=== PATIENT | female | born 1965 | race Caucasian/White ===

== ENCOUNTER → 2016-05-27 | Outpatient (CLI) | payer BC ==
[2016-05-27 13:22] LABS: Hepatitis C Virus IgG Index 0.01
[2016-05-27 13:25] LABS: Hepatitis C Virus IgG Ab Negative (Negative)
== END | disposition home or self-care (01) ==
LOC: LABWHC1 11:33
PROVIDERS: ATTEND Family Medicine
DX: Z00.00 Encounter for general adult medical examination without abnormal findings (principal)
CPT/HCPCS: 36415; 86803

== ENCOUNTER → 2017-05-02 | Outpatient (CLI) | payer BC ==
--- NOTE | 2017-05-02 09:27 | WWHP ---
[facility] - HISTORY AND PHYSICAL DATE OF SERVICE: 05/02/2017 CHIEF COMPLAINT: The patient is here for her routine gynecologic exam and mammogram. HPI: This is a 52-year-old G2, P2 with an LMP of 02/2015. The patient has occasional hot flashes, but they are not severe. She is without gynecologic complaints and denies any postmenopausal bleeding. PAST MEDICAL HISTORY: Seasonal allergies and asthma. MEDICATIONS: 1. Claritin-D daily p.r.n. 2. Flonase daily. 3. Omeprazole 1 daily. 4. Qvar inhaler p.r.n. 5. Multivitamin daily. ALLERGIES: PENICILLIN and VICODIN, both of which caused hives. 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 SOCIAL HISTORY: She quit smoking in her 20s. She has 0 to 2 alcohol containing drinks per week and denies drug use. She has been since 2010 and this is her second marriage. 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 REVIEW OF SYSTEMS: She has gained about 3 pounds over the last year. RESPIRATORY: She she has some seasonal allergy symptoms. She denies cardiac or GI problems. PHYSICAL EXAM: Blood pressure 130/83, height 5 feet 2 inches, weight 153 pounds, BMI 28, temperature 98.0, pulse 79. This is a well-developed, well-nourished white female who is alert and oriented x3, in no acute distress. HEENT is within normal limits. NECK: Supple without mass or thyromegaly. CHEST AND LUNGS: Clear to auscultation. HEART: Regular rate and rhythm. Breasts are without mass or discharge. Axillary exam is negative for adenopathy. BACK: Negative for CVA tenderness. ABDOMEN: Soft, nontender, without palpable masses. PELVIC EXAM: Normal external genitalia with minimal atrophy. Cervix and vagina appears normal with minimal atrophy. There is no evidence of prolapse. The uterus is mid position, nongravid size and nontender. There are no palpable adnexal masses or tenderness. Rectovaginal exam is negative for mass or tenderness and is negative for occult blood. EXTREMITIES: Nontender. IMPRESSION: A 52-year-old menopausal female with normal gynecologic exam. PLAN: 1. Pap smear was deferred since she had a normal one last year. 2. Self breast examination was discussed. 3. Mammogram will be done today. 4. Osteoporosis prevention was discussed. 5. She will return in one year. MMODL / IJN: [id number] /
--- NOTE | 2017-05-04 11:35 | MM ---
Reason for exam: screening (asymptomatic). Last mammogram was performed 1 year and 1 month ago. History: Patient is postmenopausal. Took estrogen for 5 years beginning at age 43. Physical Findings: A clinical breast exam by your physician is recommended on an annual basis and results should be correlated with mammographic findings. MG 3D Screening Mammo W/Cad Bilateral CC and MLO view(s) were taken. Prior study comparison: March 29, 2016, bilateral MG 3d screening mammo w/cad. January 16, 2015, bilateral MG screening mammo w CAD. The breast tissue is heterogeneously dense. This may lower the sensitivity of mammography. There is chronic nodularity in the right breast. No significant changes when compared with prior studies. ASSESSMENT: Negative, BI-RAD 1 RECOMMENDATION: Routine screening mammogram of both breasts in 1 year.
== END | disposition home or self-care (01) ==
LOC: WWCWWP 08:00
PROVIDERS: ATTEND Obstetrics & Gynecology
DX: Z12.31 Encounter for screening mammogram for malignant neoplasm of breast (principal)
CPT/HCPCS: 77063; G0202

== ENCOUNTER → 2017-06-09 | Outpatient (CLI) | payer BC ==
[2017-06-09 08:31] LABS: Basophils % (A) 0 %; Eosinophils # (A) 0.2 k/uL (0-0.7); Eosinophils % (A) 3 %; HCT 40.6 % (34.0-46.0); HGB 13.3 gm/dL (11.4-16.0); Lymphocytes # (A) 1.8 k/uL (1.0-4.8); Lymphocytes % (A) 22 %; MCH 30.2 pg (25.0-35.0); MCHC 32.7 g/dL (31.0-37.0); MCV 92.3 fL (80.0-100.0); Mean Platelet Volume 6.7; Monocytes # (A) 0.5 k/uL (0-1.0); Monocytes % (A) 6 %; Neutrophils # (A) 5.3 k/uL (1.3-7.7); Neutrophils % (A) 67 %; Platelet Count 324 k/uL (150-450); RDW 13.5 % (11.5-15.5)
[2017-06-09 08:49] LABS: ALT 29 U/L (9-52); AST 23 U/L (14-36); Alkaline Phosphatase 137 U/L (38-126); Anion Gap 8 mmol/L; Blood Urea Nitrogen 18 mg/dL (7-17); Calcium 9.3 mg/dL (8.4-10.2); Carbon Dioxide 27 mmol/L (22-30); Chloride 110 mmol/L (98-107); Cholesterol 145 mg/dL (<200); Glucose 94 mg/dL (74-99); HDL Cholesterol 65 mg/dL (40-60); LDL Cholesterol,Calculated 64 mg/dL (0-99); Potassium 4.5 mmol/L (3.5-5.1); Sodium 145 mmol/L (137-145); Total Bilirubin 0.4 mg/dL (0.2-1.3); Total Protein 6.8 g/dL (6.3-8.2); Triglycerides 82 mg/dL (<150)
== END | disposition home or self-care (01) ==
LOC: LABWHC1 08:13
PROVIDERS: ATTEND Family Medicine
DX: Z00.00 Encounter for general adult medical examination without abnormal findings (principal); G47.01 Insomnia due to medical condition; J01.01 Acute recurrent maxillary sinusitis; L63.9 Alopecia areata, unspecified
CPT/HCPCS: 36415; 80053; 80061; 84443; 85025

== ENCOUNTER → 2018-05-28 | Outpatient (CLI) | payer BC ==
[2018-05-28 14:18] VITALS: BP 113/83; PULSE 132; TEMP 98.5; BMI 27.4
[2018-05-28 14:32] VITALS: RESP 18
--- NOTE | 2018-05-28 15:01 | P.HPOB ---
History of Present Illness H&P Date: 05/28/18 Chief Complaint: The patient is here for her routine gynecologic exam and mammogram. This is a 53-year-old G2 PII within LMP of 2014. The patient is without gynecologic complaints and denies any postmenopausal bleeding. Review of Systems The patient has lost 3 pounds over the last year. She denies respiratory, cardiac, or G.I. problems. Past Medical History Past Medical History: Asthma, GERD/Reflux Additional Past Medical History / Comment(s): Seasonal allergies. 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 History of Any Multi-Drug Resistant Organisms: None Reported Past Surgical History: Section, Cholecystectomy, Orthopedic Surgery Additional Past Surgical History / Comment(s): left hand. Excision of labial tissue-benign 2008. Colonoscopy 2015. Past Psychological History: No Psychological Hx Reported Smoking Status: Former smoker (Briefly smoked in her 20s.) Past Alcohol Use History: Occasional (0 to 2 per week) Past Drug Use History: None Reported Additional History: She's been since 2010 and this is her 2nd marriage. 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 - Past Family History Mother Family Medical History: No Reported History Additional Family Medical History / Comment(s): Great-grandmother had breast cancer and grandfather had Alzheimer's disease. Medications and Allergies Home Medications Medication Instructions Recorded Confirmed Type Cetirizine HCl [Zyrtec] 5 mg PO DAILY 05/28/18 05/28/18 History Lifitegrast [Xiidra] 1 dropper BOTH EYES BID 05/28/18 05/28/18 History Multivit with Calcium,Iron,Min 1 each PO DAILY 05/28/18 05/28/18 History [One Daily Women's] Omeprazole [PriLOSEC] 20 mg PO AC-BRKFST 05/28/18 05/28/18 History Allergies Allergy/AdvReac Type Severity Reaction Status Date / Time acetaminophen [From Vicodin] AdvReac Severe hives Unverified 05/28/18 14:06 hydrocodone [From Vicodin] AdvReac Severe hives Unverified 05/28/18 14:06 Penicillins AdvReac Severe hives Unverified 05/28/18 14:06 Exam Vital Signs Temp Pulse Resp BP Pulse Ox 05/28/18 14:11 98.5 F 132 H 18 113/83 95 Height 5'2", weight 150 pounds, BMI 28. Repeat pulse 100 bpm. This is a well-developed well-nourished white female who is alert and oriented times 3 in no acute distress. HEENT: Within normal limits. NECK: Supple without mass or thyromegaly. CHEST AND LUNGS: Clear to auscultation. HEART: mild tachycardia. Regular rhythm. BREASTS: Are without mass or discharge. AXILLARY EXAM: Negative for adenopathy. BACK: Negative for CVA tenderness. ABDOMEN: Soft, nontender, without palpable masses. PELVIC EXAM: Normal external genitalia. Cervix and vagina appear normal with minimal atrophy. There is no unusual discharge. There is no evidence of prolapse. The uterus is midposition, nongravid size and nontender. There are no palpable adnexal masses or tenderness. RECTAL EXAM: rectovaginal exam is negative for mass or tenderness and is negative for occult blood. EXTREMITIES: Nontender. IMPRESSION: 1. 53 year old menopausal female with normal gynecologic exam. 2. Mild tachycardia. Asymptomatic. PLAN: 1. Pap smear was performed. 2. Self breast awareness was discussed with the patient. 3. Screening mammogram will be done today. 4. Osteoporosis prevention was discussed. I have stressed the importance of adequate calcium, vitamin D and regular exercise. Recommended amounts of calcium and vitamin D were also discussed. 5. We have discussed her tachycardia. She will check her own pulse on a regular basis. She will follow-up with Dr. Correia for pulse elevations or problems. She states she does have an appointment with him in 2 weeks. She will let him know that she did have an elevated pulse today. 6. She will return in one year.
--- NOTE | 2018-06-01 09:18 | MM ---
Reason for exam: screening (asymptomatic). Last mammogram was performed 1 year and 1 month ago. History: Patient is postmenopausal. Took estrogen for 5 years beginning at age 43. MG 3D Screening Mammo W/Cad Bilateral CC and MLO view(s) were taken. Prior study comparison: May 02, 2017, bilateral MG 3d screening mammo w/cad. March 29, 2016, bilateral MG 3d screening mammo w/cad. The breast tissue is heterogeneously dense. This may lower the sensitivity of mammography. No discrete abnormality. No significant changes when compared with prior studies. ASSESSMENT: Negative, BI-RAD 1 RECOMMENDATION: Routine screening mammogram of both breasts in 1 year.
== END ==
LOC: WWCWWP 13:51
PROVIDERS: ATTEND Obstetrics & Gynecology
DX: Z12.31 Encounter for screening mammogram for malignant neoplasm of breast (principal)
CPT/HCPCS: 77063; 77067

== ENCOUNTER → 2018-06-14 | Outpatient (CLI) | payer BC ==
[2018-06-14 09:02] LABS: Basophils # (A) 0.1 k/uL (0-0.2); Basophils % (A) 1 %; Eosinophils # (A) 0.1 k/uL (0-0.7); Eosinophils % (A) 2 %; HCT 39.9 % (34.0-46.0); HGB 12.9 gm/dL (11.4-16.0); Lymphocytes % (A) 29 %; MCH 29.6 pg (25.0-35.0); MCHC 32.3 g/dL (31.0-37.0); MCV 91.6 fL (80.0-100.0); Mean Platelet Volume 6.9; Monocytes # (A) 0.4 k/uL (0-1.0); Monocytes % (A) 6 %; Neutrophils % (A) 60 %; Platelet Count 298 k/uL (150-450); RBC 4.35 m/uL (3.80-5.40); RDW 13.9 % (11.5-15.5); WBC 6.7 k/uL (3.8-10.6)
[2018-06-14 16:52] LABS: Albumin 4.3 g/dL (3.80-4.90); Albumin/Globulin Ratio 2.05 (1.60-3.17); Anion Gap 10.1 mmol/L (4.00-12.00); Calcium 9.5 mg/dL (8.7-10.3); Carbon Dioxide 24.9 mmol/L (21.6-31.8); Globulin 2.1 g/dL (1.6-3.3); LDL Cholesterol,Calculated 75.8 mg/dL (0.0-131.0); Potassium 4.5 mmol/L (3.5-5.5); Total Bilirubin 0.5 mg/dL (0.2-1.2); Total Protein 6.4 g/dL (6.2-8.2); VLDL Calculation 13.2 mg/dL (5.00-40.00)
== END | disposition home or self-care (01) ==
LOC: LABWHC1 07:37
PROVIDERS: ATTEND Family Medicine
DX: Z00.00 Encounter for general adult medical examination without abnormal findings (principal); Z13.828 Encounter for screening for other musculoskeletal disorder
CPT/HCPCS: 36415; 80053; 80061; 84439; 84443; 85025

== ENCOUNTER → 2019-10-21 | Outpatient (CLI) | payer BC ==
[2019-10-21 08:13] VITALS: BP 112/69; PULSE 67; RESP 18; TEMP 98.2
--- NOTE | 2019-10-21 08:43 | P.HPOB ---
History of Present Illness H&P Date: 10/21/19 Chief Complaint: The patient is here for her routine gynecologic exam and ma mmogram. This is a 54-year-old with an LMP of 2014. The patient is without gynecologic complaints and denies any postmenopausal bleeding. Review of Systems The patient has lost 28 pounds over the last year. She says she lost the weight through [employer] last summer. She denies respiratory, cardiac, or G.I. problems. Past Medical History Past Medical History: Asthma, GERD/Reflux Additional Past Medical History / Comment(s): Seasonal allergies. 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 History of Any Multi-Drug Resistant Organisms: None Reported Past Surgical History: Section, Cholecystectomy, Orthopedic Surgery Additional Past Surgical History / Comment(s): left hand Sx. Excision of labial tissue-benign 2008. Colonoscopy 2016(next after 10yr). Past Psychological History: Anxiety Smoking Status: Former smoker Past Alcohol Use History: Occasional Additional Past Alcohol Use History / Comment(s): Quit smoking in her 20s. Past Drug Use History: None Reported Additional Drug Use History / Comment(s): Has tried CBD Gummy Bears for anxiety. Additional History: She has been since 2010 and this is her second marriage. 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 - Past Family History Mother Family Medical History: No Reported History Additional Family Medical History / Comment(s): Great-grandmother had breast cancer and grandfather had Alzheimer's disease. Medications and Allergies Home Medications Medication Instructions Recorded Confirmed Type Lifitegrast [Xiidra] 1 dropper BOTH EYES BID 05/28/18 10/21/19 History Multivit with Calcium,Iron,Min 1 each PO DAILY 05/28/18 10/21/19 History [One Daily Women's] Calcium Carbonate/Vitamin D3 1 each PO DAILY 10/21/19 10/21/19 History [Calcium 600-D3 20Mcg(800 Unit)] Loratadine [Claritin] 5 mg PO DAILY 10/21/19 10/21/19 History Vitamin C/Biotin [Hair, Skin and 1 tab PO DAILY 10/21/19 10/21/19 History Nails] Allergies Allergy/AdvReac Type Severity Reaction Status Date / Time acetaminophen [From Vicodin] AdvReac Severe hives Unverified 10/21/19 08:04 hydrocodone [From Vicodin] AdvReac Severe hives Unverified 10/21/19 08:04 Penicillins AdvReac Severe hives Unverified 10/21/19 08:04 Exam Vital Signs Temp Pulse Resp BP Pulse Ox 10/21/19 08:07 98.2 F 67 18 112/69 99 Intake and Output 10/20/19 10/21/19 10/21/19 22:59 06:59 14:59 Other: Weight 55.338 kg Height 5 feet 2 inches, weight 122 pounds, BMI 22.3. This is a well-developed well-nourished white female who is alert and oriented times 3 in no acute distress. HEENT: Within normal limits. NECK: Supple without mass or thyromegaly. CHEST AND LUNGS: Clear to auscultation. HEART: Regular rate and rhythm. BREASTS: Are without mass or discharge. AXILLARY EXAM: Negative for adenopathy. BACK: Negative for CVA tenderness. ABDOMEN: Soft, nontender, without palpable masses. PELVIC EXAM: Normal external genitalia with minimal atrophy. Cervix and vagina appear normal with mild atrophy. There is no unusual discharge. There is no evidence of prolapse. The uterus is midposition, nongravid size and nontender. There are no palpable adnexal masses or tenderness. RECTAL EXAM: Rectovaginal exam is negative for mass or tenderness and is negative for occult blood. EXTREMITIES: Nontender. IMPRESSION: 1. 54-year-old menopausal female with normal gynecologic exam. 2. Successful weight loss through [employer]. PLAN: 1. Pap smear was deferred since she had a normal one on 05/28/2018. 2. Self breast awareness was discussed with the patient. 3. Screening mammogram will be done today. 4. Osteoporosis prevention was discussed. I have stressed the importance of adequate calcium, vitamin D and regular exercise. Recommended amounts of calcium and vitamin D were also discussed. 5. She was advised to return in one year for her annual well woman exam.
--- NOTE | 2019-10-23 11:03 | MM ---
Reason for exam: screening (asymptomatic). Last mammogram was performed 1 year and 5 months ago. History: Patient is postmenopausal. Took estrogen for 5 years beginning at age 43. Physical Findings: A clinical breast exam by your physician is recommended on an annual basis and results should be correlated with mammographic findings. MG 3D Screening Mammo W/Cad Bilateral CC and MLO view(s) were taken. Prior study comparison: May 28, 2018, bilateral MG 3d screening mammo w/cad. May 02, 2017, bilateral MG 3d screening mammo w/cad. The breast tissue is heterogeneously dense. This may lower the sensitivity of mammography. There is chronic nodularity in the right breast. There is no discrete abnormality. ASSESSMENT: Benign, BI-RAD 2 RECOMMENDATION: Routine screening mammogram of both breasts in 1 year.
== END | disposition home or self-care (01) ==
LOC: WWCWWP 07:57
PROVIDERS: ATTEND Obstetrics & Gynecology
DX: Z12.31 Encounter for screening mammogram for malignant neoplasm of breast (principal)
CPT/HCPCS: 77063; 77067

== ENCOUNTER → 2020-11-09 | Outpatient (CLI) | payer BC ==
[2020-11-09 09:44] VITALS: BP 115/78; PULSE 73; RESP 18; TEMP 98.2
== END ==
LOC: WWCWWP 09:34
PROVIDERS: ATTEND Obstetrics & Gynecology
DX: Z12.31 Encounter for screening mammogram for malignant neoplasm of breast (principal); Z01.419 Encounter for gynecological examination (general) (routine) without abnormal findings; J45.909 Unspecified asthma, uncomplicated; Z87.891 Personal history of nicotine dependence; Z80.3 Family history of malignant neoplasm of breast; Z88.0 Allergy status to penicillin; Z88.5 Allergy status to narcotic agent
CPT/HCPCS: 77063; 77067

== ENCOUNTER → 2022-02-22 | Outpatient (CLI) | payer BC ==
[2022-02-22 11:00] VITALS: BP 126/84; PULSE 60; RESP 16; TEMP 97.9
--- NOTE | 2022-02-22 11:31 | P.HPOB ---
History of Present Illness H&P Date: 02/22/22 Chief Complaint: The patient is here for her routine gynecologic exam and ma mmogram. This is a 56-year-old with an LMP of 2014. The patient is without gynecologic complaints and denies any postmenopausal bleeding. Review of Systems The patient has lost 3 pounds over the last year. She denies respiratory, cardiac, or G.I. problems. Past Medical History Past Medical History: Asthma, GERD/Reflux Additional Past Medical History / Comment(s): Seasonal allergies. 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 History of Any Multi-Drug Resistant Organisms: None Reported Past Surgical History: Section, Cholecystectomy, Orthopedic Surgery Additional Past Surgical History / Comment(s): left hand Sx. Excision of labial tissue-benign 2008. Colonoscopy 2016(next after 10yr). Past Psychological History: Anxiety Smoking Status: Former smoker Past Alcohol Use History: Occasional (2 per week) Additional Past Alcohol Use History / Comment(s): Quit smoking in her 20s. Past Drug Use History: None Reported Additional Drug Use History / Comment(s): Has tried CBD Gummy Bears for anxiety. Additional History: She has been since 2010 and this is her second marriage. 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 - Past Family History Mother Family Medical History: No Reported History Additional Family Medical History / Comment(s): Great-grandmother had breast cancer and grandfather had Alzheimer's disease. Medications and Allergies Home Medications Medication Instructions Recorded Confirmed Type Lifitegrast [Xiidra] 1 dropper BOTH EYES BID 05/28/18 02/22/22 History Multivit with Calcium,Iron,Min 1 each PO DAILY 05/28/18 02/22/22 History [One Daily Women's] Calcium Carbonate/Vitamin D3 1 each PO DAILY 10/21/19 02/22/22 History [Calcium 600-D3 20Mcg(800 Unit)] Loratadine [Claritin] 5 mg PO DAILY 10/21/19 02/22/22 History Montelukast [Singulair] 10 mg PO DAILY 02/22/22 02/22/22 History Allergies Allergy/AdvReac Type Severity Reaction Status Date / Time loteprednol [From Lotemax] Allergy Swelling Unverified 02/22/22 10:55 acetaminophen [From Vicodin] AdvReac Severe hives Unverified 02/22/22 10:53 hydrocodone [From Vicodin] AdvReac Severe hives Unverified 02/22/22 10:53 Penicillins AdvReac Severe hives Unverified 02/22/22 10:53 Exam Vital Signs Temp Pulse Resp BP Pulse Ox 02/22/22 10:58 97.9 F 60 16 126/84 98 Intake and Output 02/21/22 02/22/22 02/22/22 22:59 06:59 14:59 Other: Weight 56.699 kg Height 5 feet 2 inches, weight 125 pounds, BMI 22.9. This is a well-developed well-nourished white female who is alert and oriented times 3 in no acute distress. HEENT: Within normal limits. NECK: Supple without mass or thyromegaly. CHEST AND LUNGS: Clear to auscultation. HEART: Regular rate and rhythm. BREASTS: Are without mass or discharge. AXILLARY EXAM: Negative for adenopathy. BACK: Negative for CVA tenderness. ABDOMEN: Soft, nontender, without palpable masses. PELVIC EXAM: Normal external genitalia with mild atrophy. Cervix and vagina appear normal with mild atrophy. There is no unusual discharge. There is no evidence of prolapse. The uterus is midposition, nongravid size and nontender. There are no palpable adnexal masses or tenderness. RECTAL EXAM: Rectovaginal exam is negative for mass or tenderness and is negative for occult blood. EXTREMITIES: Nontender. IMPRESSION: 1. 56-year-old menopausal female with normal gynecologic exam. PLAN: 1. Pap smear was deferred since she had a negative Pap smear cotest on 11/09/2020. 2. Self breast awareness was discussed with the patient. We have also discussed symptoms associated with inflammatory breast cancer. 3. Screening mammogram was done today. 4. Osteoporosis prevention was discussed. I have stressed the importance of adequate calcium, vitamin D and regular exercise. Recommended amounts of calci um and vitamin D were also discussed. 5. She has completed her Covid vaccination series and has received 2 boosters. She also has had Covid twice. 6. She was advised to return in one year for her annual well woman exam.
--- NOTE | 2022-02-23 07:59 | MM ---
Reason for Exam: Screening (asymptomatic). Last mammogram was performed 1 year(s) and 3 month(s) ago. Patient History: Menarche at age 13. First Full-Term at age 25. Postmenopausal. Estrogen for 5 years from age 43 until age 48. Risk Values: Lilly 5 year model risk: 1.4%. NCI Lifetime model risk: 8.9%. Prior Study Comparison: 12/25/2013 Right Diagnostic Mammogram, [facility]. 03/29/2016 Bilateral Screening Mammogram, [facility]. 05/02/2017 Bilateral Screening Mammogram, [facility]. 05/28/2018 Bilateral Screening Mammogram, [facility]. 10/21/2019 Bilateral Screening Mammogram, [facility]. 11/09/2020 Bilateral Screening Mammogram, [facility]. Tissue Density: The breast tissue is heterogeneously dense. This may lower the sensitivity of mammography. Findings: Analyzed By CAD. Benign-appearing bilateral axillary lymph nodes are redemonstrated. Occasional scattered small benign-appearing round calcification throughout the left breast is again seen. There is no suspicious group of microcalcifications or new suspicious mass in either breast. Overall Assessment: Benign, BI-RAD 2 Management: Screening Mammogram of both breasts in 1 year. A clinical breast exam by your physician is recommended on an annual basis and results should be correlated with mammographic findings. Electronically signed and approved by: Sherman Almaguer M.D.
--- NOTE | 2022-02-23 07:59 | MM ---
Reason for Exam: Screening (asymptomatic). Last mammogram was performed 1 year(s) and 3 month(s) ago. Patient History: Menarche at age 13. First Full-Term at age 25. Postmenopausal. Estrogen for 5 years from age 43 until age 48. Risk Values: Lilly 5 year model risk: 1.4%. NCI Lifetime model risk: 8.9%. Prior Study Comparison: 12/25/2013 Right Diagnostic Mammogram, [facility]. 03/29/2016 Bilateral Screening Mammogram, [facility]. 05/02/2017 Bilateral Screening Mammogram, [facility]. 05/28/2018 Bilateral Screening Mammogram, [facility]. 10/21/2019 Bilateral Screening Mammogram, [facility]. 11/09/2020 Bilateral Screening Mammogram, [facility]. Tissue Density: The breast tissue is heterogeneously dense. This may lower the sensitivity of mammography. Findings: Analyzed By CAD. Benign-appearing bilateral axillary lymph nodes are redemonstrated. Occasional scattered small benign-appearing round calcification throughout the left breast is again seen. There is no suspicious group of microcalcifications or new suspicious mass in either breast. Overall Assessment: Benign, BI-RAD 2 Management: Screening Mammogram of both breasts in 1 year. A clinical breast exam by your physician is recommended on an annual basis and results should be correlated with mammographic findings. Electronically signed and approved by: Sherman Almaguer M.D.
== END | disposition home or self-care (01) ==
LOC: RADMAMWWP 10:22
PROVIDERS: ATTEND Obstetrics & Gynecology
DX: Z12.31 Encounter for screening mammogram for malignant neoplasm of breast (principal); Z78.0 Asymptomatic menopausal state
CPT/HCPCS: 77063; 77067

== ENCOUNTER → 2023-03-06 | Outpatient (CLI) | payer BC ==
[2023-03-06 11:29] VITALS: BP 122/82; PULSE 59; RESP 16; TEMP 97.8
--- NOTE | 2023-03-06 12:06 | P.HPOB ---
History of Present Illness H&P Date: 03/06/23 Chief Complaint: The patient is here for her routine gynecologic exam and ma mmogram. This is a 57-year-old with an LMP of 2014. The patient is without gynecologic complaints and denies any postmenopausal bleeding. Review of Systems The patient's weight has been stable over the last year. She denies respiratory, cardiac, or G.I. problems. Past Medical History Past Medical History: Asthma, GERD/Reflux Additional Past Medical History / Comment(s): Seasonal allergies. 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 History of Any Multi-Drug Resistant Organisms: None Reported Past Surgical History: Section, Cholecystectomy, Orthopedic Surgery Additional Past Surgical History / Comment(s): left hand Sx. Excision of labial tissue-benign 2008. Colonoscopy 2016(next after 10yr). Past Psychological History: Anxiety Smoking Status: Former smoker Past Alcohol Use History: Occasional (8 drinks per month.) Additional Past Alcohol Use History / Comment(s): Quit smoking in her 20s. Past Drug Use History: None Reported Additional Drug Use History / Comment(s): Has tried CBD Gummy Bears for anxiety. Additional History: She has been since 2010 and this is her second marriage. 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 - Past Family History Mother Family Medical History: No Reported History Additional Family Medical History / Comment(s): Great-grandmother had breast cancer and grandfather had Alzheimer's disease. Medications and Allergies Home Medications Medication Instructions Recorded Confirmed Type Lifitegrast [Xiidra] 1 dropper BOTH EYES BID 05/28/18 03/06/23 History Multivit with Calcium,Iron,Min 1 each PO DAILY 05/28/18 03/06/23 History [One Daily Women's] Calcium Carbonate/Vitamin D3 1 each PO DAILY 10/21/19 03/06/23 History [Calcium 600-D3 20Mcg(800 Unit)] Loratadine [Claritin] 5 mg PO DAILY 10/21/19 03/06/23 History Montelukast [Singulair] 10 mg PO DAILY 02/22/22 03/06/23 History Fluticasone Nasal [place] [Flonase 1 spray NASAL DAILY 03/06/23 03/06/23 History Nasal [place]] Allergies Allergy/AdvReac Type Severity Reaction Status Date / Time loteprednol [From Lotemax] Allergy Swelling Unverified 03/06/23 11:23 acetaminophen [From Vicodin] AdvReac Severe hives Unverified 03/06/23 11:23 hydrocodone [From Vicodin] AdvReac Severe hives Unverified 03/06/23 11:23 Penicillins AdvReac Severe hives Unverified 03/06/23 11:23 Exam Vital Signs Temp Pulse Resp BP Pulse Ox 03/06/23 11:25 97.8 F 59 L 16 122/82 96 Intake and Output 03/05/23 03/06/23 03/06/23 22:59 06:59 14:59 Other: Weight 57.606 kg Height 5 feet 2 inches, weight 127 pounds, BMI 23.2. This is a well-developed well-nourished white female who is alert and oriented times 3 in no acute distress. HEENT: Within normal limits. NECK: Supple without mass or thyromegaly. CHEST AND LUNGS: Clear to auscultation. HEART: Regular rate and rhythm. BREASTS: Are without mass or discharge. AXILLARY EXAM: Negative for adenopathy. BACK: Negative for CVA tenderness. ABDOMEN: Soft, nontender, without palpable masses. PELVIC EXAM: Normal external genitalia with mild atrophy. Cervix and vagina appear normal mild atrophy. There is no unusual discharge. There is no evidence of prolapse. The uterus is midposition, nongravid size and nontender. There are no palpable adnexal masses or tenderness. RECTAL EXAM: Rectovaginal exam is negative for mass or tenderness and is negative for occult blood. EXTREMITIES: Nontender. IMPRESSION: 1. 57-year-old menopausal female with normal gynecologic exam. PLAN: 1. Pap smear was deferred since she had a negative Pap smear cotest on 11/09/2020. 2. Self breast awareness was discussed with the patient. We have also discussed symptoms associated with inflammatory breast cancer. 3. Screening mammogram will be done today. 4. Osteoporosis prevention was discussed. I have stressed the importance of adequate calcium, vitamin D and regular exercise. Recommended amounts of calcium and vitamin D were also discussed. 5. She was advised to return in one year for her annual well woman exam.
--- NOTE | 2023-03-07 08:23 | MM ---
Reason for Exam: Screening (asymptomatic). Last screening mammogram was performed 12 month(s) ago. Patient History: Menarche at age 13. First Full-Term at age 25. Postmenopausal. Estrogen for 5 years from age 43 until age 48. Risk Values: Lilly 5 year model risk: 1.4%. NCI Lifetime model risk: 8.7%. Prior Study Comparison: 10/21/2019 Bilateral Screening Mammogram, [facility]. 11/09/2020 Bilateral Screening Mammogram, [facility]. 02/22/2022 Bilateral MG 3D screening mammo w/cad, [facility]. Tissue Density: The breast tissue is heterogeneously dense. This may lower the sensitivity of mammography. Findings: Analyzed By CAD. There is no suspicious group of microcalcifications or new suspicious mass. Overall Assessment: Negative, BI-RAD 1 Management: Screening Mammogram of both breasts in [address] [facility] will attempt to contact patient to return for supplemental views and ultrasound if indicated. Patient should continue monthly self-breast exams. A clinical breast exam by your physician is recommended on an annual basis. This exam should not preclude additional follow-up of suspicious palpable abnormalities. Note on Lilly scores and lifetime risk: 1. A Lilly score greater than 3% is considered moderate risk. If this is the case, consider specialist referral to assess eligibility for a risk reducing agent. 2. If overall lifetime risk for the development of breast cancer is 20% or higher, the patient may qualify for future screening with alternating mammogram and breast MRI. Electronically signed and approved by: Gerson Carroll DO
== END ==
LOC: WWCWWP 11:11
PROVIDERS: ATTEND Obstetrics & Gynecology
DX: Z12.31 Encounter for screening mammogram for malignant neoplasm of breast (principal); J45.909 Unspecified asthma, uncomplicated; K21.9 Gastro-esophageal reflux disease without esophagitis; Z78.0 Asymptomatic menopausal state; Z80.3 Family history of malignant neoplasm of breast; Z87.891 Personal history of nicotine dependence; Z88.0 Allergy status to penicillin; Z88.5 Allergy status to narcotic agent; Z88.8 Allergy status to other drugs, medicaments and biological substances; Z79.899 Other long term (current) drug therapy; Z88.1 Allergy status to other antibiotic agents
CPT/HCPCS: 77063; 77067

== ENCOUNTER → 2024-03-12 | Outpatient (CLI) | payer BC ==
[2024-03-12 08:04] VITALS: BP 133/76; PULSE 66; RESP 16; TEMP 97.9
--- NOTE | 2024-03-12 08:28 | P.HPOB ---
History of Present Illness H&P Date: 03/12/24 Chief Complaint: The patient is here for her routine gynecologic exam and ma mmogram. This is a 59-year-old G2, P2 with an LMP of 2015. The patient is without gynecologic complaints and denies any postmenopausal bleeding. Review of Systems The patient has gained 6 pounds over the last year. She denies respiratory, cardiac, or G.I. problems. Past Medical History Past Medical History: Asthma, GERD/Reflux Additional Past Medical History / Comment(s): Seasonal allergies. 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 History of Any Multi-Drug Resistant Organisms: None Reported Past Surgical History: Section, Cholecystectomy, Orthopedic Surgery Additional Past Surgical History / Comment(s): left hand Sx. Excision of labial tissue-benign 2008. Colonoscopy 2016(next after 10yr). Past Psychological History: Anxiety Smoking Status: Former smoker Past Alcohol Use History: Occasional (1 drink per week.) Additional Past Alcohol Use History / Comment(s): Quit smoking in her 20s. Past Drug Use History: None Reported Additional Drug Use History / Comment(s): Has tried CBD Gummy Bears for anxiety. Additional History: She has been since 2010 and this is her second marriage. 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 - Past Family History Mother Family Medical History: No Reported History, Dementia Additional Family Medical History / Comment(s): Great-grandmother had breast cancer and grandfather had Alzheimer's disease. Medications and Allergies Home Medications Medication Instructions Recorded Confirmed Type Lifitegrast [Xiidra] 1 dropper BOTH EYES BID 05/28/18 03/12/24 History Multivit with Calcium,Iron,Min 1 each PO DAILY 05/28/18 03/12/24 History [One Daily Women's] Calcium Carbonate/Vitamin D3 1 each PO DAILY 10/21/19 03/12/24 History [Calcium 600-D3 20Mcg(800 Unit)] Loratadine [Claritin] 5 mg PO DAILY 10/21/19 03/12/24 History Montelukast [Singulair] 10 mg PO DAILY 02/22/22 03/12/24 History Fluticasone Nasal [place] [Flonase 1 spray NASAL DAILY 03/06/23 03/12/24 History Nasal [place]] Allergies Allergy/AdvReac Type Severity Reaction Status Date / Time loteprednol [From Lotemax] Allergy Swelling Unverified 03/12/24 08:02 acetaminophen [From Vicodin] AdvReac Severe hives Unverified 03/12/24 08:02 hydrocodone [From Vicodin] AdvReac Severe hives Unverified 03/12/24 08:02 Penicillins AdvReac Severe hives Unverified 03/12/24 08:02 Exam Vital Signs Temp Pulse Resp BP Pulse Ox 03/12/24 08:02 97.9 F 66 16 133/76 98 Intake and Output 03/11/24 03/12/24 03/12/24 22:59 06:59 14:59 Other: Weight 60.328 kg Height 5 foot 1 inch, weight 133 pounds, BMI 25.1 This is a well-developed well-nourished white female who is alert and oriented times 3 in no acute distress. HEENT: Within normal limits. NECK: Supple without mass or thyromegaly. CHEST AND LUNGS: Clear to auscultation. HEART: Regular rate and rhythm. BREASTS: Are without mass or discharge. AXILLARY EXAM: Negative for adenopathy. BACK: Negative for CVA tenderness. ABDOMEN: Soft, nontender, without palpable masses. PELVIC EXAM: Normal external genitalia with mild atrophy. Cervix and vagina appear normal with minimal atrophy. There is no unusual discharge. There is no evidence of prolapse. The uterus is midposition, nongravid size and nontender. There are no palpable adnexal masses or tenderness. RECTAL EXAM: Rectovaginal exam is negative for mass or tenderness and is n egative for occult blood. EXTREMITIES: Nontender. IMPRESSION: 1. 59-year-old menopausal female with normal gynecologic exam. PLAN: 1. Pap smear was deferred since she had a negative Pap smear cotest on 11/09/2020. 2. Self breast awareness was discussed with the patient. We have also discussed symptoms associated with inflammatory breast cancer. 3. Osteoporosis prevention was discussed. I have stressed the importance of adequate calcium, vitamin D and regular exercise. Recommended amounts of calcium and vitamin D were also discussed. Plan on doing a bone density test at age 60 the next year. 4. She was advised to return in one year for her annual well woman exam.
--- NOTE | 2024-03-13 07:51 | MM ---
Reason for Exam: Screening (asymptomatic). Last mammogram was performed 1 year(s) and 1 month(s) ago. Patient History: Menarche at age 13. First Full-Term at age 25. Postmenopausal. Estrogen for 5 years from age 43 until age 48. Risk Values: Lilly 5 year model risk: 1.5%. NCI Lifetime model risk: 8.3%. Prior Study Comparison: 11/09/2020 Bilateral Screening Mammogram, [facility]. 02/22/2022 Bilateral MG 3D screening mammo w/cad, [facility]. 03/06/2023 Bilateral MG 3D screening mammo w/cad, [facility]. Tissue Density: The breasts are heterogeneously dense, which may obscure small masses. Findings: Analyzed By CAD. There is no suspicious group of microcalcifications or new suspicious mass in either breast. A lateral chronic nodularity stable from multiple prior exams. Overall Assessment: Benign, BI-RAD 2 Management: Screening Mammogram of both breasts in 1 year. . Patient should continue monthly self-breast exams. A clinical breast exam by your physician is recommended on an annual basis. This exam should not preclude additional follow-up of suspicious palpable abnormalities. Note on Lilly scores and lifetime risk: 1. A Lilly score greater than 3% is considered moderate risk. If this is the case, consider specialist referral to assess eligibility for a risk reducing agent. 2. If overall lifetime risk for the development of breast cancer is 20% or higher, the patient may qualify for future screening with alternating mammogram and breast MRI. [facility], , 03/13/2024 7:47 AM. Electronically signed and approved by: Edgar Valentine M.D. Radiologis
== END ==
LOC: WWCWWP 07:50
PROVIDERS: ATTEND Obstetrics & Gynecology
DX: Z12.31 Encounter for screening mammogram for malignant neoplasm of breast (principal); R92.8 Other abnormal and inconclusive findings on diagnostic imaging of breast; R92.333 Mammographic heterogeneous density, bilateral breasts; Z78.0 Asymptomatic menopausal state; Z87.891 Personal history of nicotine dependence; Z80.3 Family history of malignant neoplasm of breast; Z88.5 Allergy status to narcotic agent; Z88.0 Allergy status to penicillin; Z88.1 Allergy status to other antibiotic agents; Z88.8 Allergy status to other drugs, medicaments and biological substances
CPT/HCPCS: 77063; 77067